=== PATIENT | male | born 1945 | race Caucasian/White ===

== ENCOUNTER 2021-02-04 09:02 | Emergency (ER) | payer MEDICARE, OTHER ==
[~2021-02-04] VITALS: Ht 170.2 cm; Wt 77.1 kg
[2021-02-04] MEDS ORDERED: FUROSEMIDE40 MG PO (09:15)
[2021-02-04] MEDS ORDERED: METOPROLOL SUCC25 MG PO (09:15)
[2021-02-04] MEDS ORDERED: SPIRONOLACTONE25 MG PO (09:15)
[2021-02-04] MEDS ORDERED: SIMVASTATIN40 MG PO (09:16)
[2021-02-04] MEDS ORDERED: METFORMIN HCL1000 MG PO (09:16)
[2021-02-04] MEDS ORDERED: GABAPENTIN100 MG PO (09:16)
[2021-02-04] MEDS ORDERED: LIDODERM1 EACH TOP (09:34)
== END 2021-02-04 11:15 | disposition home or self-care (01) ==
LOC: ED 09:02
DX: M54.5 Low back pain (principal); E11.9 Type 2 diabetes mellitus without complications; Z87.891 Personal history of nicotine dependence; Z79.899 Other long term (current) drug therapy; Z79.84 Long term (current) use of oral hypoglycemic drugs
CPT/HCPCS: 72100; 99283-25; A9270

== ENCOUNTER 2022-04-18 09:24 | Emergency (ER) | payer MEDICARE, OTHER ==
[~2022-04-18] VITALS: Ht 170.2 cm; Wt 80.8 kg
[~2022-04-18 09:24] MED LIST: FUROSEMIDE40 MG PO; GABAPENTIN100 MG PO; LIDODERM1 EACH TOP; METFORMIN HCL1000 MG PO; METOPROLOL SUCC25 MG PO; SIMVASTATIN40 MG PO; SPIRONOLACTONE25 MG PO
[2022-04-18] MEDS ORDERED: ELIQUIS5 MG PO (09:44)
== END 2022-04-18 11:29 | disposition home or self-care (01) ==
LOC: ED 09:24
DX: R04.0 Epistaxis (principal); E11.9 Type 2 diabetes mellitus without complications; Z87.891 Personal history of nicotine dependence; Z79.899 Other long term (current) drug therapy; Z79.84 Long term (current) use of oral hypoglycemic drugs
CPT/HCPCS: 30901; 99283-25

== ENCOUNTER 2022-10-11 14:49 | Emergency (ER) | payer MEDICARE ==
[~2022-10-11] VITALS: Ht 170.2 cm; Wt 89.9 kg
[~2022-10-11 14:49] MED LIST changes: +ELIQUIS5 MG PO
--- OUTSIDE RECORDS SUMMARY | 2022-10-11 14:52 | XMS ---
PreManage Notification: SAVANNA HARLEY Security Salesperson Burial Needs Events No recent Security Events currently on file CRITERIA MET - [facility] CARE PROVIDERS There are no care providers on record at this time. Michaela has no Care Guidelines for this patient. Simone VISIT COUNT (12 MO.) 2 ARON Mistry TOTAL 2 NOTE: Visits indicate total known visits. 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
[2022-10-11] MEDS ORDERED: MIRTAZAPINE7.5 MG PO (17:36)
[2022-10-11] MEDS ORDERED: POTASSIUM CHLO10 MEQ PO (17:36)
== END 2022-10-11 18:42 | disposition home or self-care (01) ==
LOC: ED 14:49
DX: N48.89 Other specified disorders of penis (principal); E11.9 Type 2 diabetes mellitus without complications; Z79.84 Long term (current) use of oral hypoglycemic drugs
CPT/HCPCS: 99282

== ENCOUNTER 2024-03-10 10:54 | Emergency (ER) | payer OTHER, MEDICARE ==
[~2024-03-10] VITALS: Ht 170.2 cm; Wt 91.2 kg
[~2024-03-10 10:54] MED LIST changes: +MIRTAZAPINE7.5 MG PO; +POTASSIUM CHLO10 MEQ PO
[2024-03-10] MEDS ORDERED: CEPHALEXIN500 M1 PO (11:36)
[2024-03-10 11:52] VITALS: BP 152/90
== END 2024-03-10 11:52 | disposition home or self-care (01) ==
LOC: ED 10:54
DX: S61.207A Unspecified open wound of left little finger without damage to nail, initial encounter (principal); E11.9 Type 2 diabetes mellitus without complications; I25.2 Old myocardial infarction; X58.XXXA Exposure to other specified factors, initial encounter; Z87.891 Personal history of nicotine dependence; Z88.8 Allergy status to other drugs, medicaments and biological substances; Z79.01 Long term (current) use of anticoagulants; Z79.899 Other long term (current) drug therapy
CPT/HCPCS: 99283